=== PATIENT | female | born 1980 | race Hispanic/Latino ===

== ENCOUNTER 2017-04-08 23:43 | Emergency (ER) | payer OTHER ==
[2017-04-08 23:51] VITALS: BMI 31.9
--- NOTE | 2017-04-08 23:51 | ED PDOC ---
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 Pt. works as [employer], trying to obtain the blood and accidentally poked on the rt. hand 3rd digit region, immediately wash with soap and water along with squeezing the blood out, no numbness or tingling, no headache or night sweat, no dizziness, no other medical or psychological complaints. Past Medical History - Provider Review Nursing Documentation Reviewed: Yes Family/Social History - Physician Review Nursing Documentation Reviewed: Yes Family/Social History: Unknown Family HX Allergies/Home Meds Allergies/Adverse Reactions: Allergies No Known Allergies Allergy (Verified 04/08/17 23:49) Home Medications: Home Meds Medication Instructions Recorded Confirmed Metoprolol Succinate [Toprol XL] 25 mg PO PRN PRN 04/08/17 04/08/17 Review of Systems - Review of Systems Constitutional: absent: Fatigue, Fevers Eyes: absent: Vision Changes ENT: absent: Hearing Changes Cardiovascular: absent: Chest Pain Gastrointestinal: absent: Abdominal Pain, Nausea, Vomiting Skin: Other (puncture wound). absent: Rash, Pruritis, Skin Lesions, Laceration , Abscess, Ulcer, Cellulitis Neurological: absent: Headache, Dizziness, Focal Weakness, Gait Changes Psychiatric: absent: Anxiety, Depression, Suicidal Ideation Physical Exam Vital Signs Temp Pulse Resp BP Pulse Ox 04/08/17 23:54 98.6 F 91 H 16 122/85 100 - Systems Exam Head: Present: Atraumatic, Normocephalic Pupils: Present: PERRL Extroacular Muscles: Present: EOMI Conjunctiva: Present: Normal Mouth: Present: Moist Mucous Membranes Neck: Present: Normal Range of Motion Respiratory/Chest: Present: Clear to Auscultation, Good Air Exchange. No: Respiratory Distress, Accessory Muscle Use Cardiovascular: Present: Regular Rate and Rhythm, Normal S1, S2. No: Murmurs Abdomen: Present: Normal Bowel Sounds. No: Tenderness, Distention, Peritoneal Signs Back: Present: Normal Inspection Upper Extremity: Present: Normal Inspection, Other (Rt. hand 3rd digit dorsum aspect of the middle phalanx visible superficial puncture wound with no active bleeding noted, FROM without limitation, sensation intact, motor 5/5, +radial pulse, capillary refill< 2 seconds, neurovascular intact. ). No: Cyanosis, Edema Lower Extremity: Present: Normal Inspection. No: Edema Neurological: Present: GCS=15, CN II-XII Intact, Speech Normal Skin: Present: Warm, Dry, Normal Color. No: Rashes Psychiatric: Present: Alert, Oriented x 3, Normal Insight, Normal Concentration Medical Decision Making ED Course and Treatment: 04/08/17 23:53 -Hepatitis Panel and rapid HIV as baseline -I offered Post exposure prophylatic treatment including truvada and isentress with the risk of exposure to the actual infectious agent, medication side effect , pt. refused and declined the post exposure prophylatic treatment. 04/09/17 01:41 -Hepatitis Panel blood work will not be resulted today. -Discharge home with education on follow up with your own pmd and employee health tomorrow, return to the ER for any new or worsening signs or symptoms. - PA / [employer] LAYOUT PERSON / Resident Statement / has reviewed & agrees with the documentation as recorded. Disposition/Present on Arrival - Present on Arrival Any Indicators Present on Arrival: No History of DVT/PE: No History of Uncontrolled Diabetes: No Urinary Catheter: No History of Decub. Ulcer: No - Disposition Have Diagnosis and Disposition been Completed?: Yes Diagnosis: Needle stick injury Disposition: HOME/ ROUTINE Disposition Time: 23:56 Patient Plan: Discharge Condition: GOOD Additional Instructions: Discharge home with bacitracin ointment, follow up with your own pmd and employee health tomorrow, return to the ER for any new or worsening signs or symptoms. Referrals: Tre Lockhart MD [Staff Provider] - Follow up with primary Forms: WORK NOTE
[2017-04-08 23:55] VITALS: RESP 16; TEMP 98.6
[2017-04-09 02:28] VITALS: BP 122/73; PULSE 76; O2SAT 98
== END 2017-04-09 02:28 | disposition home or self-care (01) ==
LOC: ED 23:43
DX: S61.232A Puncture wound without foreign body of right middle finger without damage to nail, initial encounter (principal); W46.0XXA Contact with hypodermic needle, initial encounter; Y93.89 Activity, other specified; Y92.238 Other place in hospital as the place of occurrence of the external cause; Y99.0 Civilian activity done for income or pay

== ENCOUNTER 2018-08-21 08:22 | Emergency (ER) | payer OTHER ==
[2018-08-21 08:22] VITALS: BMI 31.9
--- NOTE | 2018-08-21 08:59 | ED PDOC ---
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 Pain worse with flexion, R rotation, sidebending L, localized localized to T6-7 on the R, rated 10/10 in severity. No other complaints at this time. ROS otherwise negative. Time/Duration: Prior to Arrival Symptom Onset: Sudden Symptom Course: Unchanged Quality: Cramping Severity Level: Severe Activities at Onset: Light Past Medical History - Provider Review Nursing Documentation Reviewed: Yes - Past History Past History: No Previous - Cardiac Hx Cardiac Disorders: Yes Other/Comment: PVC - Pulmonary Hx Respiratory Disorders: No - Neurological Hx Neurological Disorder: No - HEENT Hx HEENT Disorder: No - Renal Hx Renal Disorder: Yes Hx Kidney Stones: Yes - Endocrine/Metabolic Hx Endocrine Disorders: No - Hematological/Oncological Hx Blood Disorders: No - Integumentary Hx Dermatological Disorder: No - Musculoskeletal/Rheumatological Hx Musculoskeletal Disorders: No - Gastrointestinal Hx Gastrointestinal Disorders: No - Genitourinary/Gynecological Hx Genitourinary Disorders: No - Psychiatric Hx Psychophysiologic Disorder: No Hx Substance Use: No - Surgical History Hx Dilation and Curettage: Yes Other/Comment: Bladder biopsy Family/Social History - Physician Review Nursing Documentation Reviewed: Yes Family/Social History: Unknown Family HX Smoking Status: Never Smoked Hx Alcohol Use: Yes Frequency of alcohol use: Socially Hx Substance Use: No Allergies/Home Meds Allergies/Adverse Reactions: Allergies No Known Allergies Allergy (Verified 08/21/18 08:29) Home Medications: Home Meds Medication Instructions Recorded Confirmed Metoprolol Succinate XL [Toprol XL] 25 mg PO PRN PRN 04/08/17 08/21/18 Review of Systems - Physician Review All systems were reviewed & negative as marked: Yes - Review of Systems Constitutional: Normal Eyes: Normal ENT: Normal Respiratory: Normal Cardiovascular: Normal Gastrointestinal: Normal Musculoskeletal: Back Pain, Myalgias Skin: Normal Neurological: Normal Endocrine: Normal Hemo/Lymphatic: Normal Psychiatric: Normal Physical Exam - Physical Exam Narrative Physical Exam (Text): 08/21/18 09:23 TTP R T6-T7 Pain with flexion, sidebend L, rotation R Appearance: Positive for: Well-Appearing, Non-Toxic Pain Distress: Moderate Mental Status: Positive for: Alert and Oriented X 3 - Systems Exam Head: Present: Atraumatic, Normocephalic Pupils: Present: PERRL Extroacular Muscles: Present: EOMI Conjunctiva: Present: Normal Mouth: Present: Moist Mucous Membranes Neck: Present: Normal Range of Motion Respiratory/Chest: Present: Clear to Auscultation, Good Air Exchange. No: Respiratory Distress, Accessory Muscle Use, Wheezes, Rales, Rhonchi Cardiovascular: Present: Regular Rate and Rhythm, Normal S1, S2 Abdomen: Present: Normal Bowel Sounds. No: Tenderness, Distention, Peritoneal Signs, Rebound, Guarding, Mass/Organomegaly Back: Present: Normal Inspection, Paraspinal Tenderness Upper Extremity: Present: Normal Inspection, Normal ROM, NORMAL PULSES, Capillar y Refill < 2s. No: Cyanosis, Edema, Tenderness, Swelling Lower Extremity: Present: Normal Inspection, NORMAL PULSES, Normal ROM. No: Edema, CALF TENDERNESS, Tenderness, Swelling Neurological: Present: CN II-XII Intact, Speech Normal Skin: Present: Warm, Dry, Normal Color. No: Rashes Psychiatric: Present: Alert, Oriented x 3, Normal Insight, Normal Concentration Medical Decision Making ED Course and Treatment: 08/21/18 09:40 Impression: 38 yo F with no pmhx presenting to ED with acute onset R back pain Plan: --Reassess and disposition Progress Note 08/21/18 09:47 Shared decision making with patient to defer complete medical evaluation to worker's comp physician. Pt understands she must be cleared by physician before returning to work. Scripts provided, encouraged to continue conservative rx while at home as well as monitoring of symptoms. Pt demonstrates understanding and agrees to follow up Medically stable for discharge. Disposition/Present on Arrival - Present on Arrival Any Indicators Present on Arrival: No History of DVT/PE: No History of Uncontrolled Diabetes: No Urinary Catheter: No History of Decub. Ulcer: No History Surgical Site Infection Following: None - Disposition Have Diagnosis and Disposition been Completed?: Yes Diagnosis: Back pain, Work related injury Disposition: HOME/ ROUTINE Disposition Time: 09:50 Patient Plan: Discharge Condition: GOOD Discharge Instructions (ExitCare): Upper Back Pain (DC) Additional Instructions: RAMONA SHEPARD, thank you for letting us take care of you today. Your provider was Andrew Person MD and you were treated for BACK PAIN. The emergency medical care you received today was directed at your acute symptoms. If you were prescribed any medication, please fill it and take as directed. It may take several days for your symptoms to resolve. Return to the Emergency Department if your symptoms worsen, do not improve, or if you have any other problems. Please contact your doctor or call one of the physicians/clinics you have been referred to that are listed on the Patient Visit Information form that is included in your discharge packet. Bring any paperwork you were given at discharge with you along with any medications you are taking to your follow up visit. Our treatment cannot replace ongoing medical care by a primary care provider outside of the emergency department. Thank you for allowing the [facility] team to be part of your care today. Please return to ED if symptoms worsen or persist. Prescriptions: diaZEpam [Valium] 5 mg PO PRN PRN #6 tab PRN Reason: Muscle Spasm Ibuprofen [Motrin] 600 mg PO Q6H 4 Days #24 tab Forms: [employer] (Italian)
[2018-08-21 09:50] VITALS: BP 124/87; PULSE 78; RESP 18; TEMP 98; O2SAT 100
== END 2018-08-21 09:51 | disposition home or self-care (01) ==
LOC: ED 08:22
DX: M54.6 Pain in thoracic spine (principal); Y99.0 Civilian activity done for income or pay